=== PATIENT | female | born 1950 ===

== ENCOUNTER → 2017-04-16 | Day surgery (SDC) | payer MEDICARE, OTHER ==
--- NOTE | 2017-04-12 13:29 | NUR ---
PHONE PRE-ADMIT.
[~2017-04-16] VITALS: Ht 154.9 cm; Wt 61.2 kg
[~2017-04-16] MED LIST: LEVOTHYROXINE100 MCG PO; LIPITOR20 MG PO; TRAZODONE HCL50 MG PO
== END ==
LOC: OPS 09:27 → DS 10:45 → OPS 10:45
PROVIDERS: Ophthalmology
PROC: 08RK3JZ Replacement of Left Lens with Synthetic Substitute, Percutaneous Approach (ICD-10-PCS; principal; 2017-04-16 10:45)
DX: H25.12 Age-related nuclear cataract, left eye (principal); E07.9 Disorder of thyroid, unspecified; Z90.710 Acquired absence of both cervix and uterus; Z88.5 Allergy status to narcotic agent; Z79.899 Other long term (current) drug therapy
CPT/HCPCS: 140